=== PATIENT | male | born 2000 | race Caucasian/White ===

== ENCOUNTER 2021-02-08 20:45 | Emergency (ER) | payer OTHER ==
[~2021-02-08] VITALS: Ht 180.3 cm; Wt 86.2 kg
[2021-02-08 21:04] VITALS: BP 126/68
[2021-02-08] MEDS ORDERED: VALACYCLOVIR1000 MG PO (22:38)
[2021-02-08] MEDS ORDERED: TRAMADOL 50 MG50 MG PO (22:38)
== END 2021-02-08 23:00 | disposition home or self-care (01) ==
LOC: ER 20:45
DX: B02.9 Zoster without complications (principal); M54.9 Dorsalgia, unspecified